=== PATIENT | female | born 1960 | race Caucasian/White ===

== ENCOUNTER → 2018-05-21 | Outpatient (CLI) | payer OTHER ==
[~2018-05-21] MED LIST: ARIXTRA SQ; ASPIRIN325 PO; DAYPRO600 MG PO; FLUOCINONI0.05 %/30 TOP; GLUCOPHAGE1000 MG PO; LISINOPRIL10 MG PO; MAXZIDE 75-501 EACH PO; NORCO 5-325 TA1 EACH PO; OXYIR 5 MG CAPSU5 M1 PO; PANTOPRAZOLE SO40 MG PO; PRAVACHOL40 MG PO; SINGULAIR 10 MG10 M1 PO; SOMA PO
== END ==
LOC: M.ULTRA 07:52
DX: N28.1 Cyst of kidney, acquired (principal); R82.99 Other abnormal findings in urine; R11.0 Nausea

== ENCOUNTER 2019-01-09 02:57 | Emergency (ER) | payer OTHER ==
[~2019-01-09] VITALS: Ht 162.6 cm; Wt 108.9 kg
[2019-01-09 03:54] LABS: ABSOLUTE EOSINOPHILS 0.1 thou/uL (0.0-0.7); ABSOLUTE LYMPHOCYTES 1.8 thou/uL (0.8-5.3); ABSOLUTE MONOCYTES 0.5 thou/uL (0.0-1.2); ABSOLUTE NEUTROPHILS 3.5 thou/uL (1.6-8.1); BASOPHILS 0.2 %; EOSINOPHILS 2.2 %; HEMATOCRIT 42.5 % (37.0-47.0); HEMOGLOBIN 14.5 gm/dL (12.0-15.0); LYMPHOCYTES 30.7 %; MCH 30.4 pg (26.0-34.0); MCHC 34.1 g/dL (28.0-37.0); MCV 89.2 fL (80.0-100.0); MONOCYTES 7.8 %; NUCLEATED RBCS 0 /100WBC; PLATELET COUNT* 166 thou/uL (150-400); POLYS 59.1 %; RBC 4.77 mil/uL (4.20-5.00); RDW-CV 14.1 % (10.5-14.5); WBC 5.9 thou/uL (4.0-11.0)
[2019-01-09 04:06] LABS: PROTIME 10.6 Seconds (9.20-11.50)
[2019-01-09 04:21] LABS: ANION GAP 10 mmol/L (7-16); BUN 15 mg/dL (7-18); CALCIUM 9.2 mg/dL (8.5-10.1); CHLORIDE 105 mmol/L (98-107); CO2 27 mmol/L (21-32); CREATININE 0.8 mg/dL (0.6-1.3); GLUCOSE 137 mg/dL (70-99); POTASSIUM 3.8 mmol/L (3.5-5.1); SODIUM 142 mmol/L (136-145); TROPONIN-I LEVEL <0.06 ng/mL (<0.06)
[2019-01-09 04:22] LABS: ALBUMIN 3.6 g/dL (3.4-5.0); ALKALINE PHOSPHATASE 98 U/L (46-116); LIPASE 165 U/L (73-393); NT-PRO BRAIN NAT PEPTIDE 84 pg/mL (<300); SGOT 21 U/L (15-37); SGPT 27 U/L (30-65); TOTAL BILIRUBIN 0.3 mg/dL (<0.1-1.0); TOTAL PROTEIN 7.4 g/dL (6.4-8.2)
[2019-01-09] MEDS ORDERED: LISINOPRIL10 MG PO (06:14)
[2019-01-09 06:46] VITALS: BP 112/73
--- NOTE | 2019-01-09 13:44 | EKG ---
[place] [address] ELECTROCARDIOGRAM REPORT Name: OFELIA COKER Room: [facility]#: [id number] Admission: 01/09/19 Attend Phys: Discharge: 01/09/19 Date of : 58 Report #: [id number] THIS REPORT FOR: //name// [facility] ED Test Date: 2019-01-09 Test Time: 03:18:02 Pat Name: OFELIA COKER Department: Room: Gender: F Vp Respiratory: Yecenia SHEPARD : 1960 Requested By: Jorge Cao Order Number: [id number] MD: Ben Guzmán Measurements Intervals [place] Rate: 94 P: 1 FL: 188 QRS: -22 QRSD: 94 T: 25 QT: 354 QTc: 443 Interpretive Statements Sinus rhythm Borderline left axis deviation Compared to ECG 10/20/2010 13:51:40 No significant changes Electronically Signed On 01-09-2019 13:44:22 CDT by Ben Guzmán [email or web address] <ELECTRONICALLY SIGNED> By: Ben Guzmán MD, [facility] 01/09/19 1344 D: [id number] Ben Guzmán MD, FACC /EPI
== END 2019-01-09 06:43 | disposition home or self-care (01) ==
LOC: M.ERS 02:57
PROVIDERS: Emergency Medicine
DX: I10 Essential (primary) hypertension (principal); E11.9 Type 2 diabetes mellitus without complications; K21.9 Gastro-esophageal reflux disease without esophagitis; E78.5 Hyperlipidemia, unspecified; Z88.8 Allergy status to other drugs, medicaments and biological substances; Z96.651 Presence of right artificial knee joint

== ENCOUNTER → 2019-02-25 | Outpatient (CLI) | payer OTHER | LOC: M.CT 08:00 | DX: Z13.6 Encounter for screening for cardiovascular disorders (principal) ==

== ENCOUNTER → 2021-02-09 | Outpatient (CLI) | payer OTHER | LOC: M.RAD 10:20 | PROVIDERS: ATTEND Family Medicine | DX: Z12.31 Encounter for screening mammogram for malignant neoplasm of breast (principal); Z78.0 Asymptomatic menopausal state ==

== ENCOUNTER → 2021-03-02 | Outpatient (CLI) | payer OTHER | LOC: M.ULTRA 09:30 | PROVIDERS: ATTEND Family Medicine | DX: K76.0 Fatty (change of) liver, not elsewhere classified (principal); N28.1 Cyst of kidney, acquired ==

== ENCOUNTER → 2021-03-11 | Outpatient (CLI) | payer OTHER | LOC: M.NUC 07:39 | PROVIDERS: ATTEND Family Medicine | DX: R10.11 Right upper quadrant pain (principal) ==

== ENCOUNTER → 2021-05-23 | Outpatient (CLI) | payer OTHER | LOC: M.CT 11:00 | PROVIDERS: ATTEND Family Medicine | DX: Z13.6 Encounter for screening for cardiovascular disorders (principal) ==